=== PATIENT | female | born 1970 | race Two or more races ===

== ENCOUNTER 2024-10-29 22:49 | Emergency (ER) | payer MEDICAID, SELFPAY ==
[2024-10-29 23:15] VITALS: BP 128/77; PULSE 91; RESP 18; TEMP 36.6; O2SAT 95
--- NOTE | 2024-10-29 23:22 | PD.EDSKIN ---
ED Skin Abcess FB-RME/HPI General Chief complaint: Skin/Abscess/Foreign Body Stated complaint: INSECT BITE TO LOWER BACK Time Seen by Provider: 10/29/24 23:13 Arrival date/time: 10/29/24 22:49 54 year old female present to emergency room with c/o of possible insect bite or infection today. uptodate with tetanus LOCATION: low back SEVERITY: Symptoms are described as being severe with limitations on activities of daily living QUALITY: Symptoms are described as being dull or achy CONTEXT: The patient is unable to identify any inciting events. DURATION/TIMING: The symptoms started approximately [employer] SYMPTOMS: The patient is unable to identify any other associated symptoms. MODIFYING FACTORS: The patient is unable to identify any alleviating or aggravating symptoms. PERTINENT ROS: denies IVDU,, denies any penetrating trauma], [no fever], no unexplained nausea or vomiting, no headache, no chest pain REVIEW OF SYSTEMS: See History of Present Illness - with the exception of those mentioned in the history of present illness, all other systems reviewed and reported as negative GENERAL: In general the patient is awake, interactive, in an emergency department gurney. HEAD/EYES/EARS/NOSE/THROAT: normo-cephalic, atraumatic, mucus membranes are moist, anicteric, palpebral conjunctiva is pink, trachea is midline. ABDOMEN: soft, not tender, no masses appreciated BACK: + simple abscess lower back no induration no red streaking or discharge. normal range of motion without pain. NEUROLOGICAL: cranio-facial features are symmetric, moves all four extremities equally without obvious limitations or weakness. EXTREMITY: no tenderness to palpation over the long bones or large joints of the bilateral upper and lower extremities, no joint swelling, no joint erythema, no signs of trauma, no unilateral leg swelling and no peripheral edema. SKIN: warm, dry, well-perfused, no jaundice, no rash, no telangiectasias or petechia. PSYCH: calm, cooperative, no evidence of psychosis or agitation Related Data Previous Rx's ?Medication ?Instructions ?Recorded metformin 1,000 mg tablet 1,000 mg PO BID #60 tabs 09/12/19 diazepam 10 mg tablet (Valium) 10 mg PO BID PRN muscle spasm #10 01/06/21 tabs doxycycline hyclate 100 mg capsule 100 mg PO BID #14 caps 10/29/24 Allergies Allergy/AdvReac Type Severity Reaction Status Date / Time No Known Allergies Allergy Verified 10/29/24 22:50 Course Course Course Narrative: Patient is admitted to the Emergency Department and evaluated. Patient appears well, is non-toxic and well hydrated. Pt appears to have an early abscess, first dose given before discharge Pt is given instructions to use warm compresses. Will initiate outpatient abx. Instructed to return in 2 days for recheck. Quality Measures none Orders Category Date Time Status Doxycycline [Vibramycin] Med 10/29/24 23:21 Once 100 mg PO X1 ONE Vital Signs Vital signs: Vital Signs Temperature 97.9 F 10/29/24 23:15 Pulse Rate 91 10/29/24 23:15 Respiratory Rate 18 10/29/24 23:15 Blood Pressure 128/77 10/29/24 23:15 Pulse Oximetry (%) 95 10/29/24 23:15 Oxygen Delivery Method Room Air 10/29/24 23:15 Skin / Abscess / Foreign Body Patient data External records reviewed:: [facility] previous records Clinical information provided by:: patient Social determinants that could affect healthcare access:: none Patient has the following chronic illnesses:: dm How is presenting disease/condition affected by chronic disease/condition?: uneffected by Evaluation data The following diagnostics were reviewed and interpreted by me:: other (specify) (n/a ) Lab and/or radiology exams considered but not ordered:: na Interpretation Summary: na Medications / Prescriptions Medications or Prescriptions considered but not ordered:: na Medication administrations:: Medication Administration History Doxycycline Hyclate (Doxycycline 100 Mg Tablet) 100 mg PO X1 ONE Stop: 10/29/24 23:22 as stated above Consultations Consultation(s) initiated? (list below): No Diagnosis Skin/Abscess Differential Diagnosis: abscess of skin or subcutaneous tissue, cellulitis and insect bites Most likely diagnosis given after review of the tests above:: abscess Admission Indicated Admission indicated?: not indicated Admission Request Was there a request for admission?: No Disposition Plan Disposition Plan: Discharge Discharge Attestation Discharge Attestation: The patient and all family members were given an opportunity to ask questions and understood the discharge instructions. Discharge instructions specifically effects, indications for sooner follow up or return to the emergency department, and the expected course of current diagnosis. Patient condition: Stable Discharge Plan Plan Patient Disposition: HOME (Self Care) Health Concerns: Follow with PMD as directed Take tylenol or motrin as need Return to ED if sx worsen Prescriptions/Referrals Prescriptions/Med Rec: New doxycycline hyclate 100 mg capsule 100 mg PO BID Qty: 14 0RF No Action metformin 1,000 mg tablet 1,000 mg PO BID Qty: 60 1RF diazepam [Valium] 10 mg tablet 10 mg PO BID PRN (Reason: muscle spasm) Qty: 10 0RF Referrals: No Primary/Family,Physician [Primary Care Provider] - In 1 week Problem List Clinical Impression: Abscess of skin or subcutaneous tissue Patient/Caregiver Discharge Instructions Education Materials: ED Abscess Antibiotic ... Print Language: Icelandic Stand Alone Forms: Cher Award Info., Patient Portal Info Letter
[2024-10-29] MEDS: DOXYCYCLINE 100 MG TABLET PO (23:26)
== END 2024-10-29 23:31 | disposition home or self-care (01) ==
PROVIDERS: Emergency Provider Emergency Medicine
DX: S30.860A Insect bite (nonvenomous) of lower back and pelvis, initial encounter (principal); L02.212 Cutaneous abscess of back [any part, except buttock and flank]; W57.XXXA Bitten or stung by nonvenomous insect and other nonvenomous arthropods, initial encounter
CPT/HCPCS: 99282; A9270